=== PATIENT | female | born 1965 | race Caucasian/White ===

== ENCOUNTER 2017-11-14 06:05 | Day surgery (SDC) | payer OTHER ==
[~2017-11-14] VITALS: Ht 165.1 cm; Wt 81.2 kg
[2017-11-14 06:32] VITALS: BP 138/88
[2017-11-14] MEDS ORDERED: SODIUM CHLORIDE 0.9% 1,000 ML IV SCH (06:37)
[2017-11-14] MEDS ORDERED: LIDOCAINE-MPF 1%, 2ML ONE (07:30)
[2017-11-14] MEDS ORDERED: ONDANSETRON 2MG/ML, 2ML IVPush ONE (09:30)
[2017-11-14] MEDS ORDERED: ACETAMINOPHEN 325 MG TABLET PO ONE (11:30)
== END 2017-11-14 13:15 ==
LOC: OUT 06:05
PROVIDERS: ATTEND Nurse Practitioner Critical Care Medicine
DX: M48.061 Spinal stenosis, lumbar region without neurogenic claudication (principal); R20.2 Paresthesia of skin; J45.909 Unspecified asthma, uncomplicated; G43.909 Migraine, unspecified, not intractable, without status migrainosus; J44.9 Chronic obstructive pulmonary disease, unspecified; Z98.890 Other specified postprocedural states; Z90.710 Acquired absence of both cervix and uterus; Z72.89 Other problems related to lifestyle; Z88.1 Allergy status to other antibiotic agents; Z88.8 Allergy status to other drugs, medicaments and biological substances
CPT/HCPCS: 62284; 72126; 72129; 72132; J3490; J7030; Q9965

== ENCOUNTER 2017-11-22 10:35 | Inpatient (IN) | payer OTHER ==
[~2017-11-22] VITALS: Ht 165.1 cm; Wt 84.0 kg
[~2017-11-22 10:35] MED LIST: BUPIVACAINE/PF-EPI 0.25% 1:200K ONE; BUPIVACAINE/PF-EPI 0.5% 1:200K ONE; CEFAZOLIN 1,000 MG ONE; EPHEDRINE 50 MG/ML, 1ML ONE; KETAMINE 10 MG/ML, 20ML ONE; THROMBIN 5,000 UNIT VIAL TP ONE; VANCOMYCIN 1,000 MG ONE
[2017-11-22] MEDS ORDERED: LACTATED RINGERS 1,000 ML IV SCH ×2 (11:11→12:01)
[2017-11-22] MEDS ORDERED: FEXO60TA24 PO (12:00)
[2017-11-22] MEDS ORDERED: LEVE750T37 PO (12:00)
[2017-11-22] MEDS ORDERED: TOPI100T24 PO (12:00)
[2017-11-22 12:02] VITALS: BP 126/84
[2017-11-22] MEDS ORDERED: LIDOCAINE-MPF 1%, 2ML ONE (12:33)
[2017-11-22] MEDS ORDERED: BUPIVACAINE/PF-EPI 0.5% 1:200K ONE (12:40)
[2017-11-22] MEDS ORDERED: VANCOMYCIN 1,000 MG ONE ×2 (12:41→14:59)
[2017-11-22] MEDS ORDERED: THROMBIN 5,000 UNIT VIAL TP ONE (12:41)
[2017-11-22] MEDS ORDERED: BACITRACIN 50,000 UNIT ONE (12:41)
[2017-11-22] MEDS ORDERED: REMIFENTANIL 1 MG ONE (12:51)
[2017-11-22] MEDS ORDERED: FENTANYL PF 100 MCG/2ML ONE ×2 (12:57→16:51)
[2017-11-22] MEDS ORDERED: LIDOCAINE-MPF 1%, 2ML INFIL ONE (13:00)
[2017-11-22] MEDS ORDERED: MIDAZOLAM 1 MG/ML, 2ML ONE ×2 (13:00→16:51)
[2017-11-22] MEDS ORDERED: ONDANSETRON 2MG/ML, 2ML ONE (13:02)
[2017-11-22] MEDS ORDERED: METOCLOPRAMIDE 5 MG/ML, 2ML ONE (13:02)
[2017-11-22] MEDS ORDERED: LIDOCAINE-MPF 2% ,5ML ONE (13:02)
[2017-11-22] MEDS ORDERED: PROPOFOL 10 MG/ML, 20ML ONE ×3 (13:02)
[2017-11-22] MEDS ORDERED: ROCURONIUM 10MG/ML,5ML ONE (13:02)
[2017-11-22] MEDS ORDERED: DEXAMETHASONE 4 MG/ML, 1ML ONE (13:02)
[2017-11-22] MEDS ORDERED: LIDOCAINE GEL 2%, 5ML ONE (13:02)
[2017-11-22] MEDS ORDERED: NEOSTIGMINE 1 MG/ML, 10ML ONE (14:46)
[2017-11-22] MEDS ORDERED: GLYCOPYRROLATE 0.2MG/1ML, 5ML ONE (14:47)
[2017-11-22] MEDS ORDERED: MAGNESIUM HYDROXIDE 8%, 30ML UDC PO PRN (16:30)
[2017-11-22] MEDS ORDERED: DIPHENHYDRAMINE 50 MG CAPSULE PO PRN (16:30)
[2017-11-22] MEDS ORDERED: HYDROcodone/APAP 10/325 MG TABLET PO PRN (16:30)
[2017-11-22] MEDS ORDERED: SENNA/DOCUSATE TABLET PO PRN (16:30)
[2017-11-22] MEDS ORDERED: ONDANSETRON 2MG/ML, 2ML IVPush PRN ×2 (16:30→17:00)
[2017-11-22] MEDS ORDERED: VANCOMYCIN PER PHARMACY MC PRN (16:30)
[2017-11-22] MEDS ORDERED: PHARMACY MAY ADJ FOR RENAL FX MC PRN (16:30)
[2017-11-22] MEDS ORDERED: HYDROmorphone PCA 30 MG/30 ML IV PRN (16:30)
[2017-11-22] MEDS ORDERED: BISACODYL 10 MG SUPP PR PRN (16:30)
[2017-11-22] MEDS: FENTANYL PF 100 MCG/2ML IV PRN ×3 (16:50→17:45)
[2017-11-22] MEDS ORDERED: OXYcodone 5 MG/5 ML ORAL.SOL UDC ONE (16:51)
[2017-11-22] MEDS ORDERED: MEPERIDINE/PF 25MG/0.5ML IVPush PRN (17:00)
[2017-11-22] MEDS ORDERED: MIDAZOLAM 1 MG/ML, 2ML IV PRN (17:00)
[2017-11-22] MEDS ORDERED: HYDROmorphone 2 MG/ML, 1ML IV PRN (17:00)
[2017-11-22] MEDS ORDERED: OXYcodone 5 MG/5 ML ORAL.SOL UDC PO PRN (17:00)
[2017-11-22] MEDS ORDERED: LABETALOL 5MG/ML, 20ML IV PRN (17:00)
[2017-11-22 19:45] VITALS: BP 127/72
[2017-11-22] MEDS: NS + 20MEQ KCL 1,000 ML IV SCH (20:08)
[2017-11-22] MEDS: SODIUM CHLORIDE FLUSH 10ML SYR IVF SCH (21:00)
[2017-11-22] MEDS: VANCOMYCIN 1,300 MG in SODIUM CHLORIDE 0.9% 250 ML IV SCH (22:44)
[2017-11-22 23:57] VITALS: BP 109/60
[2017-11-23 03:27] VITALS: BP 97/62
[2017-11-23 05:51] LABS: BASOPHILS # (AUTO) 0.03 x10^3/uL (0-0.1); BASOPHILS % (AUTO) 0 % (0-1); EOSINOPHILS % (AUTO) 0 % (1-7); LYMPHOCYTES % (AUTO) 6 % (22-44); MD NO; MEAN CORPUSCULAR HEMOGLOBIN 32.8 pg (27.0-34.8); MEAN CORPUSCULAR HGB CONC 34.1 g/dL (32.4-35.8); MEAN CORPUSCULAR VOLUME 96.3 fL (80-100); MEAN PLATELET VOLUME 8.9 fL (7.4-10.4); MONOCYTES # (AUTO) 1.16 x10^3/uL (0.2-0.8); MONOCYTES % (AUTO) 7 % (2-9); NEUTROPHILS # (AUTO) 14.81 x10^3/uL (1.8-6.8); NEUTROPHILS % (AUTO) 87 % (42-75); PLATELET COUNT 218 x10^3/uL (130-400); RED BLOOD COUNT 3.73 x10^6/uL (3.82-5.3); RED CELL DISTRIBUTION WIDTH 13.2 % (9.6-15.2)
[2017-11-23 06:01] LABS: ALBUMIN 2.9 g/dL (3.4-5.0); ANION GAP 7 mmol/L (5-15); CHLORIDE 111 mmol/L (98-107)
[2017-11-23 06:02] LABS: CREATININE 0.73 mg/dL (0.55-1.02)
[2017-11-23] MEDS: TOPIRAMATE 100 MG TABLET PO SCH (09:00)
[2017-11-23] MEDS: SODIUM CHLORIDE FLUSH 10ML SYR IVF SCH ×2 (09:00→21:00)
[2017-11-23] MEDS: LEVETIRACETAM 500 MG TABLET PO SCH (09:00)
[2017-11-23 09:06] VITALS: BP 120/65
[2017-11-23] MEDS: NS + 20MEQ KCL 1,000 ML IV SCH ×2 (09:06→17:00)
[2017-11-23] MEDS ORDERED: ONDANSETRON 4 MG TABLET ONE (09:29)
[2017-11-23] MEDS ORDERED: ONDANSETRON ODT 4 MG PO PRN (09:30)
[2017-11-23] MEDS: VANCOMYCIN 1,300 MG in SODIUM CHLORIDE 0.9% 250 ML IV SCH (10:41)
[2017-11-23 15:31] VITALS: BP 105/70
[2017-11-23 20:00] VITALS: BP 107/71
[2017-11-23] MEDS: CYCLOBENZAPRINE 10 MG TABLET PO PRN (23:00)
[2017-11-24 05:12] VITALS: BP 118/74
[2017-11-24 05:49] LABS: BASOPHILS # (AUTO) 0.04 x10^3/uL (0-0.1); BASOPHILS % (AUTO) 0 % (0-1); EOSINOPHILS # (AUTO) 0.05 x10^3/uL (0-0.4); EOSINOPHILS % (AUTO) 0 % (1-7); LYMPHOCYTES # (AUTO) 1.63 x10^3/uL (1-3.4); LYMPHOCYTES % (AUTO) 12 % (22-44); MD NO; MEAN CORPUSCULAR HEMOGLOBIN 33.5 pg (27.0-34.8); MEAN CORPUSCULAR HGB CONC 34.7 g/dL (32.4-35.8); MEAN CORPUSCULAR VOLUME 96.6 fL (80-100); MONOCYTES # (AUTO) 0.99 x10^3/uL (0.2-0.8); MONOCYTES % (AUTO) 7 % (2-9); NEUTROPHILS % (AUTO) 81 % (42-75); PLATELET COUNT 209 x10^3/uL (130-400); RED BLOOD COUNT 3.51 x10^6/uL (3.82-5.3); RED CELL DISTRIBUTION WIDTH 13.3 % (9.6-15.2)
[2017-11-24 06:45] VITALS: BP 125/75
[2017-11-24] MEDS: LEVETIRACETAM 500 MG TABLET PO SCH (08:33)
[2017-11-24] MEDS: TOPIRAMATE 100 MG TABLET PO SCH (08:34)
[2017-11-24] MEDS: SODIUM CHLORIDE FLUSH 10ML SYR IVF SCH (09:00)
[2017-11-24] MEDS ORDERED: HYDR-3307 PO (09:51)
[2017-11-24] MEDS ORDERED: CYCL-259 PO (09:52)
[2017-11-24] MEDS: CYCLOBENZAPRINE 10 MG TABLET PO PRN (11:52)
[2017-11-24 12:14] VITALS: BP 133/85
== END 2017-11-24 13:21 | disposition home or self-care (01) | DRG 460 ==
LOC: OUT 10:35 → 4NOR 18:45 → OUT 18:50 → 4NOR 18:50 → DCLOUNGE 11-24 13:07
PROVIDERS: ADMIT Neurological Surgery; ATTEND Neurological Surgery
PROC: 0SB20ZZ Excision of Lumbar Vertebral Disc, Open Approach (ICD-10-PCS; 2017-11-22)
PROC: 0SG00AJ Fusion of Lumbar Vertebral Joint with Interbody Fusion Device, Posterior Approach, Anterior Column, Open Approach (ICD-10-PCS; principal; 2017-11-22 13:30)
DX: M48.061 Spinal stenosis, lumbar region without neurogenic claudication (principal); G40.909 Epilepsy, unspecified, not intractable, without status epilepticus
CPT/HCPCS: 36415; 72100; J3490; 80048; 82040; 85025; 86850; 86900; C1713; C1776; J0690; J1100; J2250; J2270; J2405; J2704; J2710; J3010; J3370; J3480; Q0162; C1762; J2765; J7050; J7120

== ENCOUNTER → 2018-05-23 | Outpatient (CLI) | payer OTHER ==
[~2018-05-23] MED LIST changes: -BUPIVACAINE/PF-EPI 0.25% 1:200K ONE; -BUPIVACAINE/PF-EPI 0.5% 1:200K ONE; -CEFAZOLIN 1,000 MG ONE; +CYCL-259 PO; -EPHEDRINE 50 MG/ML, 1ML ONE; +FEXO60TA24 PO; +HYDR-3307 PO; -KETAMINE 10 MG/ML, 20ML ONE; +LEVE750T37 PO; -THROMBIN 5,000 UNIT VIAL TP ONE; +TOPI100T24 PO; -VANCOMYCIN 1,000 MG ONE
== END | disposition home or self-care (01) ==
LOC: RAD 14:45
PROVIDERS: ATTEND Nurse Practitioner Critical Care Medicine
DX: M48.07 Spinal stenosis, lumbosacral region (principal); M43.26 Fusion of spine, lumbar region; M48.061 Spinal stenosis, lumbar region without neurogenic claudication
CPT/HCPCS: 72110

== ENCOUNTER 2018-09-24 08:20 | Outpatient (CLI) | payer OTHER | END 2018-09-24 23:59 | disposition home or self-care (01) | LOC: CFH 08:20 | PROVIDERS: ATTEND Registered Nurse | DX: Z02.9 Encounter for administrative examinations, unspecified (principal) ==